=== PATIENT | male | born 1980 | race Asian ===

== ENCOUNTER 2022-05-15 07:55 | Outpatient (CLI) | payer BC | END 2022-05-15 07:56 | disposition home or self-care (01) | LOC: CSHULT 07:55 | PROVIDERS: ATTEND Nurse Practitioner Adult Health | DX: B18.1 Chronic viral hepatitis B without delta-agent (principal); K76.0 Fatty (change of) liver, not elsewhere classified | CPT/HCPCS: 76700 ==

== ENCOUNTER 2023-02-14 10:19 | Outpatient (CLI) | payer BC | END 2023-02-14 10:20 | disposition home or self-care (01) | LOC: CSHULT 10:19 | PROVIDERS: ATTEND Nurse Practitioner Adult Health | DX: B18.1 Chronic viral hepatitis B without delta-agent (principal); K76.0 Fatty (change of) liver, not elsewhere classified | CPT/HCPCS: 76700 ==